=== PATIENT | male | born 1975 | race Caucasian/White ===

== ENCOUNTER → 2021-06-09 10:15 | Outpatient (BNVA) | payer OTHER, SELFPAY | PROVIDERS: Visit Provider Nurse Practitioner Family | DX: Z20.822 Contact with and (suspected) exposure to COVID-19 (principal) | CPT/HCPCS: 87426 ==

== ENCOUNTER 2021-06-13 10:04 | Outpatient (CLI) | payer SELFPAY ==
[2021-06-13 10:30] VITALS: BP 116/77; PULSE 58; RESP 18; TEMP 36.8; O2SAT 97; BMI 27.9
[2021-06-13 11:20] VITALS: BP 115/73; PULSE 80; RESP 16; O2SAT 97
[2021-06-13 12:20] VITALS: BP 112/77; PULSE 51; RESP 17; TEMP 36.7; O2SAT 98
--- NOTE | 2021-06-20 18:41 | PC.SOCIAL ---
10-4 1450 antibody infusion follow up call, unable to reach patient.
== END 2021-06-13 10:05 | disposition home or self-care (01) ==
LOC: OPS 10:08
PROVIDERS: Visit Provider Nurse Practitioner Family
DX: U07.1 COVID-19 (principal)
CPT/HCPCS: 96365

== ENCOUNTER 2023-05-24 09:54 | Emergency (ER) | payer OTHER, SELFPAY ==
[2023-05-24 10:02] VITALS: BP 138/91; PULSE 71; RESP 16; TEMP 36.7; O2SAT 98; BMI 28.7
--- NOTE | 2023-05-24 10:14 | XR_ITS ---
WS: [id number] Left shoulder, 3 views, 05/24/2023 Clinical Data: trauma Comparison: None. Findings: No fractures or dislocations are seen. The AC joint shows moderate osteoarthritis. The adjacent left clavicle, left scapula and ribs are normal. The soft tissues are unremarkable. 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
--- NOTE | 2023-05-24 10:15 | XR_ITS ---
WS: [id number] Portable AP upright chest, 05/24/2023 Clinical Data: dyspnea/cough Comparison: None. Findings: No nodules, masses or effusions are seen. The heart is normal. The pulmonary vascularity is not increased. No pneumonia or pneumothorax is seen. Impression: Negative chest.
[2023-05-24 10:37] LABS: Basophils # 0.1 10^3/uL (0.0-0.1); Basophils % 0.8 %; Eosinophils # 0.1 10^3/uL (0.0-0.8); Eosinophils % 1.5 %; Hematocrit 46.3 % (37-53); Lymphocytes # 1.8 10^3/uL (0.8-4.8); Lymphocytes % 20.1 %; Mean Corpuscular HGB Conc 33.7 g/dL (30-55); Mean Corpuscular Hemoglobin 29.8 pg (27-33); Mean Corpuscular Volume 88.4 fl (82-101); Mean Platelet Volume 9.5 fL (7.4-10.4); Monocytes # 0.6 10^3/uL (0.2-0.9); Monocytes % 6.6 %; Neutrophils # 6.38 10^3/uL (1.8-7.7); Neutrophils % 70.7 %; Nucleated Red Blood Cells % 0 %; Platelet Count 287 10^3/cmm (157-399); Red Blood Count 5.24 10^6/uL (3.85-5.65); Red Cell Distribution Width 12.7 % (12.1-15.1); White Blood Count 9.04 10^3/uL (3.29-11.43)
[2023-05-24 10:54] LABS: Alanine Aminotransferase 28 U/L (0-41); Albumin Level 4.8 g/dL (3.5-5.2); Alkaline Phosphatase 63 U/L (40-130); Anion Gap 14.4 (5-19); Aspartate Amino Transferase 17 U/L (0-40); Blood Urea Nitrogen 13 mg/dL (6-20); Calcium 9.2 mg/dL (8.5-10.5); Carbon Dioxide 24 mmol/L (22-29); Chloride 104 mmol/L (98-107); Globulin 2.4 g/dL (1.3-4.6); Glomerular Filtration Rate 119.9 mL/min (90-130); Glucose 107 mg/dL (65-115); Osmolality Calculated 287 mOsm/kg (285-295); Potassium 4.4 mmol/L (3.5-5.1); Sodium 138 mmol/L (136-145); Total Bilirubin 0.5 mg/dL (0.15-1.2); Total Protein 7.2 g/dL (6.6-8.7)
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
== END 2023-05-24 11:26 | disposition home or self-care (01) ==
PROVIDERS: Emergency Provider Family Medicine
DX: Z04.1 Encounter for examination and observation following transport accident (principal); M25.512 Pain in left shoulder; Z79.02 Long term (current) use of antithrombotics/antiplatelets; F17.210 Nicotine dependence, cigarettes, uncomplicated; V68.5XXA Driver of heavy transport vehicle injured in noncollision transport accident in traffic accident, initial encounter; Y99.0 Civilian activity done for income or pay
CPT/HCPCS: 71045; 73030; 80053; 85025; 99284

== ENCOUNTER 2025-07-16 07:24 | Outpatient (CLI) | payer OTHER, SELFPAY ==
--- NOTE | 2025-07-16 07:35 | CT_ITS ---
WS: [id number] LDCT LUNG CANCER SCREENING HISTORY: HX OF TOBACCO USE TECHNIQUE: Axial imaging performed from the apices to 1 cm below the costophrenic angles. Coronal and sagittal reformats are submitted with axial MIP series. All CT scans at [facility] use at least one of these dose optimization techniques: automated exposure control; mA and/or kV adjustment per patient size (includes targeted exams where dose is matched to clinical indication); or iterative reconstruction. DLP: 83.71 mGy.cm DIvol: Mean CTDIvol: 1.50 (mGy) COMPARISON: None available. Diagnostic quality: Satisfactory Lungs: Mild pulmonary hyperexpansion. 4 mm nodule superior segment RIGHT lower lobe. Nodule is closely associated with the fissure. No additional masses are nodule. No endobronchial lesions. Heart: Normal size heart with no pericardial effusion.. Other findings: Minimal atherosclerosis aorta. No adenopathy. No adrenal mass. Minimal LEFT adrenal gland thickening. No destructive bone lesions. CT/CT lung screening [id number] IMPRESSION: LUNG-RADS: 2-Benign Appearance or Behavior FOLLOW UP: 12 Month: Continue annual screening with LDCT OTHER FINDINGS (S MODIFIER): None.
== END 2025-07-16 07:25 | disposition home or self-care (01) ==
LOC: RAD 07:25
PROVIDERS: Visit Provider Family Medicine
DX: Z12.2 Encounter for screening for malignant neoplasm of respiratory organs (principal); Z72.0 Tobacco use; R91.1 Solitary pulmonary nodule; J98.4 Other disorders of lung
CPT/HCPCS: 71271